=== PATIENT | female | born 1990 | race American Indian/Alaskan Native ===

== ENCOUNTER 2021-03-16 10:34 | Emergency (ER) | payer OTHER ==
[~2021-03-16] VITALS: Ht 175.3 cm; Wt 104.3 kg
[2021-03-16] MEDS ORDERED: AMPDEX30CR PO (10:51)
[2021-03-16] MEDS ORDERED: ESCI10 PO (10:52)
[2021-03-16] MEDS ORDERED: TRAZ100 PO (10:52)
== END 2021-03-16 13:23 | disposition home or self-care (01) ==
LOC: ER 10:34
DX: S90.31XA Contusion of right foot, initial encounter (principal); S80.211A Abrasion, right knee, initial encounter; F17.210 Nicotine dependence, cigarettes, uncomplicated; Z88.5 Allergy status to narcotic agent; Z88.8 Allergy status to other drugs, medicaments and biological substances; V00.131A Fall from skateboard, initial encounter
CPT/HCPCS: 73630; 81025; 96372; 99283-25; A9270; J1885